=== PATIENT | female | born 1975 | race Caucasian/White ===

== ENCOUNTER 2025-03-24 15:32 | Emergency (ER) | payer OTHER, SELFPAY ==
[2025-03-24 15:36] VITALS: BP 174/108
[2025-03-24 16:04] LABS: % Basophils 1.5 % (0-2); % Eosinophils 3.1 % (0-6); % Immature Granulocytes 0.5 % (0-0.5); % Lymphocytes 30.9 % (20.5-51.1); % Monocytes 8.9 % (1.7-9.3); % Neutrophils 55.1 % (42.2-75.2); Absolute Basophils 0.1 10^3/uL (0-0.2); Absolute Eosinophils 0.2 10^3/uL (0-0.7); Absolute Lymphocytes 2.3 10^3/uL (1.2-3.4); Absolute Monocytes 0.7 10^3/uL (0.1-0.6); Absolute Neutrophils 4.1 10^3/uL (1.4-6.5); Hematocrit 40.1 % (37.0-47.0); Hemoglobin 13.7 g/dL (12.0-16.0); Mean Corp Hgb Conc. 34.2 g/dL (33.0-37.0); Mean Corpuscular Hgb 31.8 pg (27.0-31.0); Mean Platelet Volume 9.4 fL (7.4-10.4); Nucleated Red Blood Cells % 0 %; Platelet Count 256 10^3/uL (130-400); Red Blood Cell Count 4.31 10^6/uL (4.20-5.40); Red Cell Dist. Width 13.3 % (11.5-14.5); White Blood Cell Count 7.4 10^3/uL (4.8-10.8)
[2025-03-24 16:07] LABS: ALT (SGPT) 16 U/L (0-35); AST (SGOT) 18 U/L (14-36); Albumin 4.3 g/dl (3.5-5.0); Alkaline Phosphatase 43 U/L (38-126); Blood Urea Nitrogen 13 mg/dl (7-17); Calcium 9.4 mg/dl (8.4-10.2); Carbon Dioxide 23 mmol/L (22-30); Chloride 112 mmol/L (98-107); Glucose 106 mg/dl (70-99); Potassium 4.6 mmol/L (3.5-5.1); Sodium 141 mmol/L (135-145); Total Bilirubin 0.4 mg/dl (0.2-1.3); Total Protein 6.8 g/dl (6.3-8.2); eGFR > 60.00
[2025-03-24 16:19] LABS: Troponin I < 0.012 ng/ml
--- NOTE | 2025-03-24 18:31 | ED.GENMED ---
History of Present Illness
General
Chief Complaint: Chest Pain
Source: patient
Exam Limitations: none
Time Seen by Provider: 03/24/25 18:09
Nursing documentation reviewed up to this point in time: agreed with
History of Present Illness
History of Present Illness:
49-year-old female with history of DVT, PE, GERD, IBS presents for 2 days of left upper back and left upper chest pain and as of yesterday, pain in the left upper arm and shortness of breath.
Patient is on Xarelto. 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
Past History
Past History
ED Past Medical History: Other (DVT PE)
Social History
Alcohol: None
Drug: None
Personal:
Living: with family
Employment: Employed
Family History
Family History: Other (No history of DVT PE)
Review of Systems
Review of Systems
Allergies reviewed?: Yes
All Other Systems: ROS reviewed and negative except as documented in HPI and ROS
Constitutional: Denies fever
Respiratory: Denies trouble breathing (But states she feels short of breath at times even at rest past 2 days)
Cardiac: Reports chest pain
ABD/GI: Denies abdominal pain or nausea
Musculoskeletal: Reports back pain (Left upper back pain); Denies neck pain
Skin: Reports no symptoms
Neurological: Reports no symptoms
Phy Exam
Physical Exam
Physical Exam:
GENERAL: No acute distress. A&Ox3.
CONSTITUTIONAL: Afebrile.
EYES: clear, conjunctivae normal
ENMT: moist mucus membranes
RESPIRATORY: Regular respirations, nonlabored, lungs clear.
CARDIOVASCULAR: Regular rate and rhythm, no murmurs, no rubs.
GI: Soft, nontender, normal BS
MUSCULOSKELETAL: Cannot reproduce chest or back pain with palpation or movement.. Left upper arm however is very tender to palpation, full range of motion, no warmth redness or swelling noted. Distal neurovascular intact. Moves with ease. Well
perfused.
SKIN: Warm, dry, pink
PSYCH: Normal mood and affect. Well kept, interactive and appropriate
NEUROLOGIC: Awake, alert and oriented. No focal neurological deficits
Scores
Heart Score for Chest Pain Patients
STEMI patient?: Not applicable
Course
Orders/Labs/Results
Orders:
Orders
03/24/25 15:32
EKG [Electrocardiogram (*1)] Urgent
Reason for Study: Chest Pain
03/24/25 15:33
EKG- Treatment ONCE
03/24/25 15:43
CXR2 [CR Chest - 2 Views ] Urgent
Comment:
Reason For Exam: chest pain
03/24/25 15:47
Complete Blood Count/With Diff Urgent
Comprehensive Metabolic Panel Urgent
Troponin I Urgent
03/24/25 18:29
US Periph Venous UPPER Ext LT Urgent
Comment:
Reason For Exam: pain, prev DVT same area
03/24/25 18:30
CT Chest PE Study Urgent
Comment:
Reason For Exam: Left CP hx PE
Abnormal Lab Results
03/24/25
15:47
MCH 31.8 H pg
(27.0-31.0)
Absolute Monos (auto) 0.7 H 10^3/uL
(0.1-0.6)
Chloride 112 H mmol/L
(98-107)
Glucose 106 H mg/dl
(70-99)
03/24/25 15:47
03/24/25 15:47
Vital Signs
Initial and Last Documented VS:
Initial Vital Signs
Temp Pulse Resp BP Pulse Ox
98.5 F 96 18 174/108 100
03/24/25 15:36 03/24/25 15:36 03/24/25 15:36 03/24/25 15:36 03/24/25 15:36
Last Documented Vital Signs
Temp Pulse Resp BP Pulse Ox
98.5 F 74 18 132/82 97
03/24/25 15:36 03/24/25 20:12 03/24/25 20:12 03/24/25 20:12 03/24/25 20:[address] Deputy Clerk consulted with Physician
[facility] Deputy Clerk consulted with physician?: Yes
Name of Physician Consulted: Santiago
MDM/Problems Addressed
Differential Diagnosis Includes:
DVT left upper extremity, PE, musculoskeletal pain, costochondritis , cervical radiculopathy
MDM/Problems Addressed:
49-year-old female with history of DVT, PE, GERD, IBS presents for 2 days of left upper back and left upper chest pain and as of yesterday, pain in the left upper arm and shortness of breath.
Patient is on Xarelto. 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 CBC, CMP unremarkable
EKG NSR
CBC, CMP unremarkable
Troponin WNL
Chest x-ray normal
8:10 p.m
US LUE radiology report read: neg for DVT
Chest CT PE study radiology report read: IMPRESSION: No acute disease of the chest. No evidence of pulmonary embolus.
This may be musculoskeletal pain or costochondritis. Prescription for Flexeril sent to her for
She also asked me if I could give her a prescription for Xarelto till she can follow-up with her heme-onc doctor
*EKG
EKG Intrepretation Date: 03/24/25
Interpretation: normal
Heart Rate: 84
Rate: normal
Rhythm: sinus
Alleman: normal axis
Interval: normal interval
QRS Pattern: normal QRS
Ischemia: no ischemia
*Critical Care Note
Total Time (30-74mins, 75-104mins- exclusive of procedures): Not Applicable
ED Attending Note
-
Portions of this chart may have been created with voice recognition software.� Occasional wrong word or��sound alike� substitutions may have occurred due to the inherent limitations of voice recognition software.
Discharge Plan
Departure
Patient Disposition: Home (Routine Discharge)
Date of Disposition: 03/24/25
Time of Disposition: 20:31
Patient with high blood pressure during this ER visit?: No
Condition: Good
Discharge Problem:
Pain in left upper arm, Atypical chest pain
Instructions: Chest Pain That Is Not Caused by the Heart (DC), Costochondritis (DC), Musculoskeletal Pain
Prescriptions:
New
Xarelto 15 mg tablet
15 mg PO DAILY Qty: 20 0RF
cyclobenzaprine 10 mg tablet
10 mg PO TID PRN (Reason: muscle pain) Qty: 15 0RF
No Action
pantoprazole 40 MG tablet,delayed release (DR/EC)
40 mg PO DAILY
rivaroxaban [Xarelto DVT-PE Treat 30d Start] 1 EACH tablets,dose pack
1 ea PO BID Qty: 0 0RF
Referrals:
Anatoliy Epstein MD [Family Provider] - As needed
Activity Restrictions/Additional Instructions:
As we discussed, your CAT scan shows no pulmonary embolism, your ultrasound shows no clot in your arm.
This may simply be musculoskeletal pain, or costochondritis, try the Flexeril muscle relaxant and see if it helps. I sent a prescription to your pharmacy. Do not drive or operate any machinery within 8 hours of taking it as it can make you sleepy
and slow your reflexes.
See your doctor in 7 to 14 days if you are not much improved by then
Interventions
Interventions:
*Risk Screen - Suicide Last Done: 03/24/25 15:36
*General Assessment Last Done: 03/24/25 15:36
*Neglect/Abuse Screening Last Done: 03/24/25 15:36
*ED- Fall Risk Assessment Last Done: 03/24/25 20:14
*ED COVID-19 Vaccine History Last Done: 03/24/25 15:36
*Nursing Disposition Last Done: 03/24/25 21:10
ED- Cardiac Assessment Last Done: 03/24/25 20:00
Discharge Date and Time
Discharge Date/Time: 03/24/25 21:11
Print Language: LAO
[2025-03-24 20:12] VITALS: BP 132/82
== END 2025-03-24 21:11 | disposition home or self-care (01) ==
LOC: EMR 15:32
PROVIDERS: EMERGENCY PHYSICIAN Student in an Organized Health Care Education/Training Program; FAMILY PHYSICIAN Internal Medicine
DX: R07.89 Other chest pain (principal); M79.622 Pain in left upper arm; Z79.01 Long term (current) use of anticoagulants; Z86.711 Personal history of pulmonary embolism; Z86.718 Personal history of other venous thrombosis and embolism
CPT/HCPCS: 99285; 71046; 71275; 80053; 84484; 85025; 93005; 93971; Q9967